=== PATIENT | male | born 1990 | race Caucasian/White ===

== ENCOUNTER 2022-12-12 00:42 | Emergency (ER) | payer SELFPAY | END 2022-12-12 02:33 | disposition home or self-care (01) | LOC: MW.ED 00:42 | DX: Z02.89 Encounter for other administrative examinations (principal) | CPT/HCPCS: 99282; 99283 ==

== ENCOUNTER 2024-01-24 05:59 | Emergency (ER) | payer BC ==
[2024-01-24] MEDS: Lidocaine 2% Viscous Solution 15 ML UD PO ONE (08:28)
[2024-01-24] MEDS: Benzocaine 20% Topical Spray UD MUCMEM ONE (08:28)
== END 2024-01-24 08:35 | disposition home or self-care (01) ==
LOC: MW.ED 05:59
DX: K04.7 Periapical abscess without sinus (principal); Z79.899 Other long term (current) drug therapy; Z88.0 Allergy status to penicillin
CPT/HCPCS: 99282; A9270; 99283